=== PATIENT | female | born 1955 ===

== ENCOUNTER → 2017-08-17 | Outpatient (CLI) | payer OTHER | END | disposition home or self-care (01) | LOC: SONOGRAMA 08:32 | DX: E04.1 Nontoxic single thyroid nodule (principal) ==

== ENCOUNTER 2018-03-05 07:15 | Outpatient (CLI) | payer OTHER | END 2018-03-05 07:23 | disposition home or self-care (01) | LOC: SONOGRAMA 07:15 | DX: E04.1 Nontoxic single thyroid nodule (principal) ==